=== PATIENT | male | born 1950 | race Caucasian/White ===

== ENCOUNTER 2016-09-28 12:24 | Observation (INO) | payer MEDICARE ==
[2016-09-28] MEDS ORDERED: HYDROmorphone INJ* 1 MG/ML CARPUJECT SYRINGE IV ONE ×2 (13:44→17:55)
[2016-09-28] MEDS ORDERED: LORazepam INJ* 2 MG/ML 1 ML VIAL IV ONE (13:44)
[2016-09-28 13:54] LABS: Hematocrit 49 % (42-52); Hemoglobin 16.3 g/dl (14.0-18.0); Mean Corpuscular HGB Conc 34 g/dl (31-36); Mean Corpuscular Hemoglobin 32 pg (27-31); Mean Corpuscular Volume 96 fL (80-94); Mean Platelet Volume 9 um3 (7.4-10.4); Red Blood Count 5.08 10^6/ul (4.0-5.4); Red Cell Distribution Width 15 % (10.5-15); White Blood Count 11.9 10^3/ul (3.5-10.8)
[2016-09-28] MEDS: Ondansetron INJ* 2 MG/ML VIAL IV ONE ×2 (13:56→13:57)
[2016-09-28 14:06] LABS: Albumin 4.2 g/dL (3.2-5.2); C Reactive Protein 7.15 mg/L (< 5.00); Calcium 9.8 mg/dL (8.6-10.3); EGFR African American 131.2 (>60); Globulin 3.1 g/dL (2-4); Total Bilirubin 0.8 mg/dL (0.2-1.0); Total Protein 7.3 g/dL (6.4-8.9)
--- NOTE | 2016-09-28 15:42 | RAD ---
INDICATION: Hernia COMPARISON: CT urogram September 27, 2013 TECHNIQUE: Noncontrast axial source images were obtained from the iliac crests through the symphysis pubis. FINDINGS: There are no CT abnormalities of the bony pelvis. There is bilateral hip arthroplasty The prostate is normal in size. Evaluation is limited due to beam hardening artifact from bilateral hip breath plasty. The bladder is not well evaluated due to beam hardening artifact from bilateral hip breath plasty No free fluid or adenopathy is seen. The noncontrast CT appearance of the bowel is remarkable for moderate diverticula.. Evaluation of the rectosigmoid colon is very limited again related to artifact and lack of contrast The superficial soft tissues appear normal. IMPRESSION: NONCONTRAST IMAGING DEMONSTRATES NO ACUTE DIAGNOSTIC FINDINGS
[2016-09-28 18:04] LABS: Urine Bacteria Absent (Absent); Urine Bilirubin Negative (Negative); Urine Glucose Negative (Negative); Urine Nitrite Negative (Negative)
[2016-09-28] MEDS ORDERED: fentaNYL* 50 MCG/ML 2 ML VIAL (100 MCG VIAL) ONE ×2 (18:56→20:16)
[2016-09-28] MEDS ORDERED: KETAMINE HCL* 50 MG/ML 10 ML VIAL ONE (18:56)
[2016-09-28] MEDS ORDERED: Midazolam* 1 MG/ML 5 ML VIAL (5 MG) ONE (18:56)
[2016-09-28] MEDS ORDERED: ceFAZolin 2 GM PREMIX (*) 2 GM/50 ML BAG IVPB ONE (19:09)
[2016-09-28] MEDS ORDERED: Bupivacaine 0.5% W/EPI SDV* 30 ML VIAL ONE (19:13)
[2016-09-28] MEDS ORDERED: Lidocaine 1% INJ* 10 MG/ML 30 ML SDV ONE (19:13)
[2016-09-28] MEDS ORDERED: Propofol* 10 MG/ML 20 ML BTL IV PUSH ONE (20:33)
[2016-09-28] MEDS ORDERED: Lidocaine 2% PF* 10 ML AMP ONE (20:33)
--- NOTE | 2016-09-28 20:48 | SURGPN ---
Brief Operative Note - Surgery Procedures: Procedures OPERATIVE REPORT PRE-OP: Incarcerated right inguinal hernia POST-OP: Incarcerated right femoral hernia PROCEDURE: Open repair with mesh of incarcerated right femoral hernia SURGEON: MD Sabrina ANESTHESIA:Local with MAC with [place] ASST: none IVF: min EBL:min SPECIMEN:none DRAIN: none WOUND CLASS: One COMPLICATIONS: none TO PACU
--- NOTE | 2016-09-28 20:48 | ED ---
Farideh Lou Anna, scribed for Kane Ott MD on 09/28/16 at 1611 . Progress - Progress Note Progress Note: DX RT INGINAL HERNIA. ADMIT SURGERY, TOÑA ROLLINS. - EKG/XRAY/CT CT: PELVIS CT - IMPRESSION: NO ACUTE FINDINGS - INTERP BY RADIOLOGIST Re-Evaluation - Re-Evaluation First Eval Re-Evaluation Time: 17:52 Change: Improved Comment: Patient reports pain has been somewhat alleviated. He no longer feels the hernia. He is looking forward to seeing the surgeon and requests the same pain medication he had earlier. Course/Dx - Diagnoses Provider Diagnoses: Inguinal hernia - Provider Notifications Discussed Care Of Patient With: Dr. Bennett (surgeon) at 17:48. Agrees to see patient. The documentation as recorded by the Farideh fortune Anna accurately reflects the service I personally performed and the decisions made by me, Kane Ott MD.
[2016-09-28] MEDS ORDERED: Labetalol IV* 5 MG/ML 20 ML VIAL IV PUSH ONE (20:50)
[2016-09-28] MEDS ORDERED: Labetalol IV* 5 MG/ML 20 ML VIAL ONE (20:50)
[2016-09-28] MEDS ORDERED: Morphine INJ* 2 MG/ML 1 ML CARPUJECT IV PRN (20:53)
[2016-09-28] MEDS ORDERED: oxyCODONE/Acetamin 5/325 MG* TAB PO PRN (20:53)
[2016-09-28] MEDS ORDERED: Ondansetron INJ* 2 MG/ML VIAL IV PRN ×2 (20:53→21:00)
[2016-09-28] MEDS ORDERED: fentaNYL* 50 MCG/ML 2 ML VIAL (100 MCG VIAL) IV PRN (20:53)
[2016-09-28] MEDS ORDERED: NS 0.9% 1000 ML* 1,000 ML IV SCH (21:00)
[2016-09-28] MEDS ORDERED: Ketorolac INJ* 15 MG/ML 1 ML VIAL IV PUSH PRN (21:00)
[2016-09-28] MEDS ORDERED: Acetaminophen TAB* 325 MG PO PRN (21:00)
[2016-09-28] MEDS ORDERED: Ketorolac INJ* 30 MG/ML 1 ML VIAL ONE (21:16)
--- NOTE | 2016-09-28 21:41 | HP ---
HISTORY AND PHYSICAL: DATE OF ADMISSION: 09/28/16 CHIEF COMPLAINT: Mass in right groin associated with discomfort. HISTORY OF PRESENT ILLNESS: Mr. Walker Anguiano is a 66-year-old gentleman who was told he had a right inguinal hernia in the past, but never had symptoms or noticed a lump or bulge, who woke up this morning, got out of bed, and developed a sudden and severe onset of right groin discomfort with a mass. He felt that the right testicle was somewhat retracted up. He was able to reduce this down, pain persisted. He had some nausea without vomiting. He did not note any generalized abdominal pain nor did he have distention. He has been urinating without difficulty. The pain persisted. He presented to the emergency room after calling an ambulance. He lives alone in [place]. Over the course of the day, he was seen by the emergency room physician and it was felt that there was an incarcerated right inguinal hernia and some of this was partially reduced. He still is having persistent discomfort and a bulge. He underwent a CT scan without contrast, which was read as normal; however, there is a significant amount of artefact from a right hip prosthesis, but there is no evidence of bowel involvement or bowel distention to my review of the images. He had persistent discomfort despite narcotic analgesic here in the emergency room. Surgical consultation was obtained for what appears to be an incompletely reduced right inguinal hernia, possible right femoral hernia. PAST MEDICAL HISTORY: 1. Rheumatoid arthritis. 2. Gastroesophageal reflux disease. 3. Hypercholesterolemia. PAST SURGICAL HISTORY: 1. Bilateral hip replacements. 2. Bilateral lower extremity ankle surgery for rheumatoid arthritis. 3. Dupuytren's contracture repair on the left hand. MEDICATIONS: Include: 1. Ranitidine 150 mg b.i.d. 2. Baby aspirin 81 mg daily. 3. Lipitor 20 mg q.p.m. 4. Methotrexate 7.5 mg weekly, he just recently took this on Monday. 5. Nexium 40 mg daily. 6. Hydrocodone. 7. Tylenol 1 tablet p.o. b.i.d. p.r.n. 8. Folic acid 1 mg daily. 9. Calcium carbonate 1 mg p.o. b.i.d. ALLERGIES: He is allergic to NICODERM patch from the skin dermal aspect. SOCIAL HISTORY: He lives alone. He drinks alcohol on a very rare social basis. He is a smoker and smokes cigarettes daily. He is trying to quit. REVIEW OF SYSTEMS: Cerebrovascular: He has got no dizziness or visual disturbances. Cardiovascular: No chest pain or shortness of breath. Pulmonary : No wheezing or hemoptysis. GI: As per above. He does have a history of reflux disease. : No urgency or hematuria. Psychiatric: Unremarkable. PHYSICAL EXAMINATION VITAL SIGNS: He is afebrile, temperature 99.1, pulse 85, blood pressure 141/95. HEENT: Sclerae anicteric. Trachea was midline. Oral mucosa is moist. LUNGS: Clear to auscultation with normal respiratory effort. HEART: Regular rate and rhythm without murmurs, rubs, or gallops. ABDOMEN: Soft, nondistended. He has a small reducible mildly tender umbilical hernia. There is no prior surgical incision in the right groin. He has an obvious bulge and a nonreducible right inguinal hernia, which is uncomfortable. He has anterior lateral vertical incision from his previous hip replacement with some deformity and a widened scar and the pelvis is somewhat rotated anteriorly. I appreciate no left inguinal hernia. There is no testicular masses or scrotal swelling. There is no overlying skin changes. PSYCHIATRIC: He is awake, alert, and oriented x3. He has normal judgment and insight. IMPRESSION: 1. Incarcerated right inguinal hernia. This appears to involve only a hernia sac, which is exquisitely tender, not responding to narcotic analgesia and despite multiple attempts here in the Trendelenburg's position and receiving some narcotic analgesia, I am unable to reduce the hernia manually and I recommend that we thus proceed with a surgical urgent repair. 2. Rheumatoid arthritis. 3. Hypercholesterolemia. 4. Gastroesophageal reflux disease. 5. Tobacco abuse. PLAN: Open repair with mesh of a right inguinal hernia. After reviewing the procedure and the findings on physical exam and the fact that this will persist , I feel that we should proceed with surgery this evening. I do not believe that there is bowel involved; however, he is having significant discomfort and this certainly may be a finding despite the CAT scan results. I also explained to him that this may be a femoral hernia but the management at this point is identical. I have discussed the procedure and the risks including, but not limited to, bleeding, infection, intraabdominal abscess formation, injury to peritoneal and retroperitoneal structures, recurrence, the use of mesh, testicular atrophy due to spermatic cord injury, recovery time, hospital stay, and activity restrictions, as well as anesthesia risks were all explained. I also impressed upon him that he is somewhat immunosuppressed due to his methotrexate. He is at increased risk for infection and poor wound healing, and he accepts these risks. CC: [facility]; Dr. Shah; Dr. Hsu, Rheumatology * [id number]/[facility] #: [id number] [facility]
[2016-09-28] MEDS ORDERED: oxyCODONE/Acetamin 5/325 MG* TAB ONE (22:24)
[2016-09-28] MEDS: oxyCODONE/Acetamin 5/325 MG* TAB PO PRN (22:27)
--- NOTE | 2016-09-29 07:22 | PN ---
Progress Note - Progress Note SOAP: Subjective: Did well overnight-pain controlled with percocet Tolerating liquids and urinating well Objective: Temp Pulse Resp BP Pulse Ox 97.8 F 86 16 126/75 97 09/29/16 03:50 09/29/16 03:50 09/29/16 03:50 09/29/16 03:50 09/29/16 03:50 Intake & Output 09/27/16 09/28/16 09/29/16 09/30/16 06:59 06:59 06:59 06:59 Intake Total 850 Output Total 200 Balance 650 Weight 128 lb Intake: IV Fluids 750 NS 50ML, Cefazolin 2G 50 lr 700 Oral 100 Output: Urine 200 PEX: Comfortable Lungs are CTA Abd is soft and non-distended. Bowel sounds are present Dressing intact right groin--mild swelling, no ecchymosis Scrotum without edema Assessment: POD#1 s/p urgent repair of incarcerated right femoral hernia with mesh RH arthritis GERD Plan: Advance diet and activity Analgesia Plan d/c later today--patient lives alone and is working to arrange transport home RX sent to [facility] on [facility]-stop checked Outpatient follow up
[2016-09-29] MEDS ORDERED: Omeprazole CAP* 20 MG PO SCH (07:30)
[2016-09-29 07:52] VITALS: BP 136/82
--- NOTE | 2016-09-29 08:09 | OP ---
DATE OF OPERATION: 09/28/16 - ROOM #343 DATE OF : 46 SURGEON: Steven Bennett M.D. FORMS DESIGNER: None. ANESTHESIOLOGIST: Dr. Livingston. ANESTHESIA: Local with monitored anesthesia care. PRE-OP DIAGNOSIS: Incarcerated right inguinal hernia. POST-OP DIAGNOSIS: Incarcerated right femoral hernia. OPERATIVE PROCEDURE: Open repair with mesh of incarcerated right femoral hernia. ESTIMATED BLOOD LOSS: Minimal. SPECIMENS: None. WOUND CLASSIFICATION: 1. IV FLUIDS: Minimal. COMPLICATIONS: None. DRAINS: None. FINDINGS: The patient had an incarcerated right femoral hernia. This did not appear to contain bowel, but appeared more than likely fat and was reduced without difficulty. DESCRIPTION OF PROCEDURE: Written informed consent was obtained, the right groin was marked with indelible ink, and preoperative antibiotics were administered. The patient was taken to the operating room, placed in the supine position. Sequential compression devices and a warming blanket were applied. The right groin and lower abdomen were prepped and draped in the usual sterile fashion. Time-out verification was completed. Initially, 0.25% Marcaine mixed with 1% lidocaine was infiltrated extensively just above the right groin crease in the right lower abdomen. An oblique incision was made and carried down through the Kervin's fascia to the external oblique aponeurosis was identified. At this point, it appeared that the palpable mass with somewhat inferior to the area of the inguinal ligament, more consistent with a femoral hernia, and I was able to dissect out a fatty-filled mass just below the abdominal wall and the anterior thigh medial, which is several centimeters in diameter, and dissected down to its neck, which is about 1 cm in diameter. This appeared to be a hernia sac with fat containing, without evidence of obvious bowel. I was able, with careful consistent gentle pressure and a little manipulation, I was able to reduce this without difficulty. The femoral fascial defect was approximately 8 to 9 mm, and I could easily pass the blunt end of a pickups in the angle into the femoral canal as to be expected. The external ring that I could identify through this rather limited dissection showed no evidence of obvious inguinal hernia. Next, a rectangular piece of polypropylene mesh was rolled up into a cigarette- type of mesh plug, approximately a 4- to 4.5-cm in length, and sutured on either side to hold it in position with an 0 Polysorb suture. I was then able to place this up into the femoral canal without difficulty a good 3 to 4 cm, right until it was flush with the external oblique aponeurosis at its reflection where it essentially became the inguinal ligament. I sutured this in several positions with interrupted 0 Polysorb suture to the inguinal ligaments superiorly and the some of the fascia medially and it sat nicely and seemed to cover the defect well. Additional Marcaine and lidocaine were infiltrated in the deeper and superficial layers. Hemostasis was assured. The wound was closed in layers of 3-0 and 4-0 Polysorb suture. Steri-Strips and sterile dressings were applied. The patient tolerated the procedure well, was taken to the recovery room in stable condition. CC: [facility]; [facility]; [facility]; Dr. Shah's Office * [id number]/[facility] #: [id number] [facility]
[2016-09-29] MEDS ORDERED: Aspirin Low Dose CHEW TAB* 81 MG PO SCH (09:00)
[2016-09-29] MEDS: oxyCODONE/Acetamin 5/325 MG* TAB PO PRN (09:13)
[2016-09-29] MEDS ORDERED: Atorvastatin* 20 MG TAB PO SCH (18:00)
--- NOTE | 2016-09-30 11:00 | ED ---
Darrin Lou Benjamin, scribed for Jeremie Carlos MD on 09/28/16 at 1346 . Abdominal Pain/Male - HPI Summary HPI Summary: 66yo male with existing inguinal hernia came to ED today c/o severe groin pain. Pt can usually push back his hernie when it protrudes, but this morning pt had severe groin pain that radiates down to his penis shortly after having a BM. Pt tried pushing it back on his own many times, but couldnt reduce it. Pt has hx of hip replacement and denies any CAD, DM, or any other medical problems. Daily smoker. - History of Current Complaint Chief Complaint: EDAbdPain Stated Complaint: LOWER RT ABD PAIN Time Seen by Provider: 09/28/16 13:17 Hx Obtained From: Patient Onset/Duration: Sudden Onset, Lasting Hours, Still Present Timing: Constant Severity Initially: Severe Severity Currently: Severe Pain Intensity: 9 Pain Scale Used: 0-10 Numeric Location: Groin - right groin Radiates: Yes Radiates to: Other - penis Aggravating Factor(s): Nothing Alleviating Factor(s): Nothing Associated Signs And Symptoms: Positive: Negative - Allergies/Home Medications Allergies/Adverse Reactions: Allergies Allergy/AdvReac Type Severity Reaction Status Date / Time Nicotine [From Nicoderm] Allergy Rash Verified 07/23/15 11:44 PMH/Surg Hx/FS Hx/Imm Hx Endocrine/Hematology History: Denies: Hx Diabetes Cardiovascular History: Denies: Hx Angina, Hx Coronary Artery Disease, Hx Hypercholesterolemia, Hx Hypertension, Hx Myocardial Infarction, Hx Pacemaker/ICD, Hx Valvular Heart Disease Respiratory History: Reports: Other Respiratory Problems/Disorders - SMOKER FOR 52 YEARS Denies: Hx Asthma, Hx Chronic Obstructive Pulmonary Disease (COPD) GI History: Reports: Hx Gastroesophageal Reflux Disease - ON MEDICATION FOR, Other GI Disorders - reflux Denies: Hx Cirrhosis History: Reports: Other Problems/Disorders - Inguinal Hernia Denies: Hx Renal Disease Musculoskeletal History: Reports: Hx Arthritis - RHEUMATOID ARTHRITIS, Hx Rheumatoid Arthritis, Hx Osteoporosis, Other Musculoskeletal History - brace L leg do to freq knee dislocation Sensory History: Reports: Hx Contacts or Glasses - GLASSES Denies: Hx Hearing Aid Opthamlomology History: Reports: Hx Contacts or Glasses - GLASSES Psychiatric History: Denies: Hx Panic Disorder - Cancer History Cancer Type, Location and Year: PROSTATE - Surgical History Surgery Procedure, Year, and Place: 1994 LEFT HIP REPLACEMENT, [place] Hx Anesthesia Reactions: No Infectious Disease History: No Infectious Disease History: Denies: Traveled Outside the [place] in Last 30 Days - Family History Known Family History: Negative: Cardiac Disease, Hypertension, Diabetes - Social History Alcohol Use: Weekly Substance Use Type: Reports: None Substance Use Comment - Amount & Last Used: MARIJUANA ONCE A WHILE Smoking Status (MU): Current Every Day Smoker Type: Cigarettes Amount Used/How Often: 1/2 PPD X 52 YEARS Have You Smoked in the Last Year: Yes Review of Systems Constitutional: Negative Eyes: Negative ENT: Negative Cardiovascular: Negative Respiratory: Negative Gastrointestinal: Negative Positive: pain - right groin pain Musculoskeletal: Negative Skin: Negative Neurological: Negative Psychological: Normal All Other Systems Reviewed And Are Negative: Yes Physical Exam Triage Information Reviewed: Yes Vital Signs On Initial Exam: Initial Vitals Temp Pulse Resp BP Pulse Ox 99.1 F 79 16 160/99 100 09/28/16 12:42 09/28/16 12:42 09/28/16 12:42 09/28/16 12:42 09/28/16 12:42 Vital Signs Reviewed: Yes Appearance: Positive: Well-Appearing, No Pain Distress, Well-Nourished Skin: Positive: Warm, Skin Color Reflects Adequate Perfusion, Dry Head/Face: Positive: Normal Head/Face Inspection Eyes: Positive: Normal ENT: Positive: Normal ENT inspection Neck: Positive: Supple, Nontender Respiratory/Lung Sounds: Positive: Clear to Auscultation, Breath Sounds Present Cardiovascular: Positive: RRR Abdomen Description: Positive: Nontender, Soft, Other: - right inguinal hernia. firm. tender to palpation. 150cc of urine in his bladder when scanned by bladderscan. Bowel Sounds: Positive: Present Musculoskeletal: Positive: Normal, Strength/ROM Intact Neurological: Positive: Normal, Sensory/Motor Intact, Alert, Oriented to Person Place, Time, CN Intact II-III, Reflexes Intact Psychiatric: Positive: Affect/Mood Appropriate - Candy Coma Scale Coma Scale Total: 15 Diagnostics - Vital Signs Vital Signs Temp Pulse Resp BP Pulse Ox 09/28/16 12:44 75 12 97 09/28/16 12:43 160/99 09/28/16 12:42 99.1 F 79 16 160/99 100 - Laboratory Lab Results: Lab Results 09/28/16 09/28/16 09/28/16 Range/Units 13:20 13:20 13:20 WBC 11.9 H (3.5-10.8) 10^3/ul RBC 5.08 (4.0-5.4) 10^6/ul Hgb 16.3 (14.0-18.0) g/dl Hct 49 (42-52) % MCV 96 H (80-94) fL MCH 32 H (27-31) pg MCHC 34 (31-36) g/dl RDW 15 (10.5-15) % Plt Count 374 (150-450) 10^3/ul MPV 9 (7.4-10.4) um3 Neut % (Auto) 87.0 H (38-83) % Lymph % (Auto) 7.8 L (25-47) % Hudspeth % (Auto) 3.3 (1-9) % Eos % (Auto) 1.1 (0-6) % Baso % (Auto) 0.8 (0-2) % Absolute Neuts (auto) 10.4 H (1.5-7.7) 10^3/ul Absolute Lymphs (auto) 0.9 L (1.0-4.8) 10^3/ul Absolute Monos (auto) 0.4 (0-0.8) 10^3/ul Absolute Eos (auto) 0.1 (0-0.6) 10^3/ul Absolute Basos (auto) 0.1 (0-0.2) 10^3/ul Absolute Nucleated RBC 0.01 10^3/ul Nucleated RBC % 0.1 Sodium 141 (133-145) mmol/L Potassium 4.0 (3.5-5.0) mmol/L Chloride 106 (101-111) mmol/L Carbon Dioxide 28 (22-32) mmol/L Anion Gap 7 (2-11) mmol/L BUN 19 (6-24) mg/dL Creatinine 0.76 (0.67-1.17) mg/dL Est GFR ( Amer) 131.2 (>60) Est GFR (Non-Af Amer) 102.0 (>60) BUN/Creatinine Ratio 25.0 H (8-20) Glucose 103 H (70-100) mg/dL Lactic Acid 1.3 (0.5-2.0) mmol/L Calcium 9.8 (8.6-10.3) mg/dL Total Bilirubin 0.80 (0.2-1.0) mg/dL AST 11 L (13-39) U/L ALT 6 L (7-52) U/L Alkaline Phosphatase 100 (34-104) U/L C-Reactive Protein 7.15 H (< 5.00) mg/L Total Protein 7.3 (6.4-8.9) g/dL Albumin 4.2 (3.2-5.2) g/dL Globulin 3.1 (2-4) g/dL Albumin/Globulin Ratio 1.4 (1-3) Urine Color Urine Appearance Urine pH (5-9) Ur Specific Lykens (1.010-1.030) Urine Protein (Negative) Urine Ketones (Negative) Urine Blood (Negative) Urine Nitrate (Negative) Urine Bilirubin (Negative) Urine Urobilinogen (Negative) Ur Leukocyte Esterase (Negative) Urine WBC (Auto) (Absent) Urine RBC (Auto) (Absent) Urine Bacteria (Absent) Urine Glucose (Negative) 09/28/16 Range/Units 17:55 WBC (3.5-10.8) 10^3/ul RBC (4.0-5.4) 10^6/ul Hgb (14.0-18.0) g/dl Hct (42-52) % MCV (80-94) fL MCH (27-31) pg MCHC (31-36) g/dl RDW (10.5-15) % Plt Count (150-450) 10^3/ul MPV (7.4-10.4) um3 Neut % (Auto) (38-83) % Lymph % (Auto) (25-47) % Hudspeth % (Auto) (1-9) % Eos % (Auto) (0-6) % Baso % (Auto) (0-2) % Absolute Neuts (auto) (1.5-7.7) 10^3/ul Absolute Lymphs (auto) (1.0-4.8) 10^3/ul Absolute Monos (auto) (0-0.8) 10^3/ul Absolute Eos (auto) (0-0.6) 10^3/ul Absolute Basos (auto) (0-0.2) 10^3/ul Absolute Nucleated RBC 10^3/ul Nucleated RBC % Sodium (133-145) mmol/L Potassium (3.5-5.0) mmol/L Chloride (101-111) mmol/L Carbon Dioxide (22-32) mmol/L Anion Gap (2-11) mmol/L BUN (6-24) mg/dL Creatinine (0.67-1.17) mg/dL Est GFR ( Amer) (>60) Est GFR (Non-Af Amer) (>60) BUN/Creatinine Ratio (8-20) Glucose (70-100) mg/dL Lactic Acid (0.5-2.0) mmol/L Calcium (8.6-10.3) mg/dL Total Bilirubin (0.2-1.0) mg/dL AST (13-39) U/L ALT (7-52) U/L Alkaline Phosphatase (34-104) U/L C-Reactive Protein (< 5.00) mg/L Total Protein (6.4-8.9) g/dL Albumin (3.2-5.2) g/dL Globulin (2-4) g/dL Albumin/Globulin Ratio (1-3) Urine Color Yellow Urine Appearance Clear Urine pH 7.0 (5-9) Ur Specific Lykens 1.016 (1.010-1.030) Urine Protein Negative (Negative) Urine Ketones 1+ H (Negative) Urine Blood 2+ H (Negative) Urine Nitrate Negative (Negative) Urine Bilirubin Negative (Negative) Urine Urobilinogen Negative (Negative) Ur Leukocyte Esterase Negative (Negative) Urine WBC (Auto) Trace(0-5/hpf) (Absent) Urine RBC (Auto) 3+(>10/hpf) H (Absent) Urine Bacteria Absent (Absent) Urine Glucose Negative (Negative) Result Diagrams: 09/28/16 13:20 09/28/16 13:20 Lab Statement: Any lab studies that have been ordered have been reviewed, and results considered in the medical decision making process. Abdominal Pain Fem Course/Dx - Course Course Of Treatment: Mr. Anguiano presented with a bulging firm right inguinal hernia. After analgesia I was able to reduce most of it but I don't think I got it all back in. A CT has been ordered and I have spoken with Dr. Bennett. I don't think he is in danger of strangulation now. - Diagnoses Provider Diagnoses: Inguinal hernia - Provider Notifications Discussed Care Of Patient With: Dr. Bennett, Dr. Ott at change of shift. Discharge - Discharge Plan Condition: Good Disposition: ADMITTED TO [facility] documentation as recorded by the Darrin fortune Benjamin accurately reflects the service I personally performed and the decisions made by me, Jeremie Carlos MD.
--- NOTE | 2017-02-14 09:59 | DS ---
CC: [facility]; Dr. Shah DISCHARGE SUMMARY: DATE OF DICTATION: 02/10/2017. DATE OF ADMISSION: 09/28/16 DATE OF DISCHARGE: 09/29/16 PRINCIPAL DIAGNOSIS: Incarcerated right femoral hernia. PROCEDURE PERFORMED: Open repair with mesh of incarcerated right femoral hernia. SECONDARY DIAGNOSES: Include: 1. Rheumatoid arthritis. 2. Gastroesophageal reflux disease. 3. Hypercholesterolemia. CONDITION ON DISCHARGE: Good. DISPOSITION: To home. DISCHARGE INSTRUCTIONS: The patient was discharged to home with wound care instructions. He will continue his preadmission medications, which include: 1. Folic acid. 2. Atorvastatin 20 mg daily. 3. Methotrexate 7.5 mg every Monday. 4. Ranitidine 150 mg b.i.d. 5. Aspirin 81 mg daily. 6. Nexium 40 mg every day. 7. Multivitamins. He was also given a prescription for Lorcet Plus 7.5/325 without refill for postoperative pain. Instructions and arrangements were made for followup in the office as well. HISTORY OF PRESENT ILLNESS: Mr. Walker Anguiano is a 66-year-old gentleman presented to the emergency room with sudden onset of right groin discomfort with pain down into the right testicle and retraction. He was told he has an inguinal hernia in the past. He has never had this formally evaluated. He was seen in the emergency room, noted a bulge in the right groin. A CT scan of the pelvis was relatively unremarkable although he had a previous right hip prosthesis causing a significant amount of artifact. Due to his increased discomfort, a surgical consultation was obtained. It was felt that he had incarcerated femoral or inguinal hernia and this was not reducible and plans were made for operative repair. HOSPITAL COURSE: The patient was taken to operative room on the evening of presentation where he underwent a repair of incarcerated right femoral hernia repair. There is no evidence of bowel involvement. Postoperatively, he did well and his diet was advanced as tolerated. On discharge, he was tolerating a regular diet. His pain was adequately controlled with oral analgesia. He was afebrile. [id number]/[facility] #: [id number] [facility]
== END 2016-09-29 12:10 | disposition home or self-care (01) ==
LOC: ED 12:24 → SSU 20:14 → OR 20:14 → SSU 20:57 → UNDOADMOB 22:20 → UNDODISOB 09-29 12:10
PROVIDERS: ADMIT Surgery; ATTEND Surgery
PROC: 0YU50JZ Supplement Right Inguinal Region with Synthetic Substitute, Open Approach (ICD-10-PCS; principal; 2016-09-28 20:00)
DX: K40.30 Unilateral inguinal hernia, with obstruction, without gangrene, not specified as recurrent (principal); M06.9 Rheumatoid arthritis, unspecified; E78.00 Pure hypercholesterolemia, unspecified; K21.9 Gastro-esophageal reflux disease without esophagitis; F17.210 Nicotine dependence, cigarettes, uncomplicated; Z79.899 Other long term (current) drug therapy
CPT/HCPCS: 36415; 72192; 80053; 81003; 81015; 83605; 85025; 86140; 96374; 96375; 96376; 99284; A9270-GY; C1781; G0378; J0690; J1170; J1885; J2001; J2060; J2250; J2405; J2704; J3010

== ENCOUNTER 2019-01-09 10:16 | Emergency (ER) | payer MEDICARE ==
[2019-01-09] MEDS ORDERED: Morphine 4 MG/ML VIAL (1 ml) 4 MG/ML VIAL IV ONE (10:24)
[2019-01-09] MEDS ORDERED: Ondansetron INJ* 2 MG/ML VIAL IV ONE (10:25)
[2019-01-09 11:03] VITALS: BP 142/98
--- NOTE | 2019-01-09 14:01 | ED ---
Upper Extremity Pain - HPI Summary HPI Summary: Patient is a 68-year-old male who presents emergency department for right shoulder dislocation. Patient states his shoulders have dislocated in the past but not recently. Patient states he was taking off a shirt today over his head and when he threw the shoulder into the hamper his right shoulder dislocated. Symptoms are mild in severity. Touching affected area makes symptoms worse. Nothing makes symptoms better. Denies associated symptoms of numbness, tingling or weakness and right arm. - History of Current Complaint Chief Complaint: EDExtremityUpper Stated Complaint: DISLOCATED RT SHOULDER PER EMS Time Seen by Provider: 01/09/19 10:20 Hx Obtained From: Patient - Allergies/Home Medications Allergies/Adverse Reactions: Allergies Allergy/AdvReac Type Severity Reaction Status Date / Time Nicotine [From Nicoderm] Allergy Rash Verified 07/23/15 11:44 PMH/Surg Hx/FS Hx/Imm Hx Previously Healthy: Yes Endocrine/Hematology History: Denies: Hx Diabetes Cardiovascular History: Denies: Hx Angina, Hx Coronary Artery Disease, Hx Hypercholesterolemia, Hx Hypertension, Hx Myocardial Infarction, Hx Pacemaker/ICD, Hx Valvular Heart Disease Respiratory History: Reports: Other Respiratory Problems/Disorders - SMOKER FOR 52 YEARS Denies: Hx Asthma, Hx Chronic Obstructive Pulmonary Disease (COPD) GI History: Reports: Hx Gastroesophageal Reflux Disease - ON MEDICATION FOR, Other GI Disorders - reflux Denies: Hx Cirrhosis History: Denies: Hx Renal Disease Musculoskeletal History: Reports: Hx Arthritis - RHEUMATOID ARTHRITIS, Hx Rheumatoid Arthritis, Hx Osteoporosis, Other Musculoskeletal History - brace L leg do to freq knee dislocation Sensory History: Reports: Hx Contacts or Glasses - GLASSES Denies: Hx Hearing Aid Opthamlomology History: Reports: Hx Contacts or Glasses - GLASSES Psychiatric History: Denies: Hx Panic Disorder - Cancer History Cancer Type, Location and Year: PROSTATE - Surgical History Surgery Procedure, Year, and Place: 1994 LEFT HIP REPLACEMENT, [place] Hx Anesthesia Reactions: No - Immunization History Date of Influenza Vaccine: 06/2019 Immunizations Up to Date: Yes Infectious Disease History: No Infectious Disease History: Denies: Traveled Outside the US in Last 30 Days - Family History Known Family History: Positive: Non-Contributory - Social History Occupation: Disabled Lives: Alone Alcohol Use: None Substance Use Type: Reports: None Substance Use Comment - Amount & Last Used: MARIJUANA ONCE A WHILE Smoking Status (MU): Current Every Day Smoker Type: Cigarettes Amount Used/How Often: 1/2 PPD X 52 YEARS Have You Smoked in the Last Year: Yes Review of Systems Positive: Other - Right shoulder injury Skin: Negative Negative: Weakness, Paresthesia, Numbness All Other Systems Reviewed And Are Negative: Yes Physical Exam Triage Information Reviewed: Yes Vital Signs On Initial Exam: Initial Vitals Temp Pulse Resp BP Pulse Ox 97.9 F 77 18 143/87 99 01/09/19 10:17 01/09/19 10:17 01/09/19 10:17 01/09/19 10:17 01/09/19 10:17 Vital Signs Reviewed: Yes Appearance: Positive: Well-Appearing - Pt. sitting up in bed in NAD. Skin: Positive: Warm, Dry Head/Face: Positive: Normal Head/Face Inspection Eyes: Positive: Normal, EOMI Neck: Positive: Supple Musculoskeletal: Positive: Other - Obvious deformity to right shoulder. Good radial pulse. NO breaks in the skin. No sensory deficits. Neurological: Positive: Normal, CN Intact II-III Psychiatric: Positive: Affect/Mood Appropriate Procedures - Joint Reduction Right Joint Reduction Site: shoulder (R) Conscious Sedation: No Reduction Attempts: 1 Pre-Procedure NV Exam: Yes Post Joint Reduction Film: Shoulder reduced with external rotation. Shoulder immobilizer placed Diagnostics - Vital Signs Vital Signs Temp Pulse Resp BP Pulse Ox 01/09/19 11:28 97.9 F 85 17 142/98 99 01/09/19 11:02 97.8 F 75 17 142/98 95 01/09/19 10:41 17 01/09/19 10:17 97.9 F 77 18 143/87 99 - Laboratory Lab Statement: Any lab studies that have been ordered have been reviewed, and results considered in the medical decision making process. Course/Dx - Course Course Of Treatment: X-ray shows a right anterior shoulder dislocation. Patient was given IV pain medication and shoulder was reduced easily with external rotation. Good post reduction radial pulse. Postreduction film shows reduction of shoulder. Patient discharged home in shoulder immobilizer to follow up with orthopedics. Ice intermittently. Tylenol or Motrin for pain as directed. Patient understands and agrees with plan. - Diagnoses Differential Diagnosis/HQI/PQRI: Positive: Fracture (Closed), Strain, Sprain Provider Diagnoses: Shoulder dislocation Discharge - Sign-Out/Discharge Documenting (check all that apply): Patient Departure Patient Received Moderate/Deep Sedation with Procedure: No - Discharge Plan Condition: Improved Disposition: HOME Patient Education Materials: Shoulder Dislocation (ED) Referrals: Derrek Le MD [Medical Doctor] - David Shah MD [Primary Care Provider] - Additional Instructions: Schedule a follow up appointment with orthopedics Wear splint x 1-2 weeks Ice shoulder intermittently Can continue home pain medication as directed Return to ER if symptoms change or worsen - Billing Disposition and Condition Condition: IMPROVED Disposition: Home
== END 2019-01-09 11:28 | disposition home or self-care (01) ==
LOC: ED 10:16
DX: S43.004A Unspecified dislocation of right shoulder joint, initial encounter (principal); X58.XXXA Exposure to other specified factors, initial encounter; I10 Essential (primary) hypertension; I25.10 Atherosclerotic heart disease of native coronary artery without angina pectoris; I25.2 Old myocardial infarction; E78.00 Pure hypercholesterolemia, unspecified; J44.9 Chronic obstructive pulmonary disease, unspecified; M06.9 Rheumatoid arthritis, unspecified; F17.210 Nicotine dependence, cigarettes, uncomplicated; Z95.0 Presence of cardiac pacemaker
CPT/HCPCS: 23650; 96374; 96375; 99282; J2270; J2405

== ENCOUNTER 2019-09-20 06:02 | Emergency (ER) | payer MEDICARE ==
[2019-09-20] MEDS ORDERED: Albuterol/Ipratropium NEB.SOL* Albuterol 2.5 MG/Ipratropium 0.5 MG 3 ML INH ONE (06:06)
--- NOTE | 2019-09-20 06:15 | ED ---
Shortness of Breath - HPI Summary HPI Summary: 69-year-old male with a significant past medical history of rheumatoid arthritis , hypercholesterolemia, diabetes, coronary artery disease, pacemaker placement, COPD presents to emergency department today complaining of shortness of breath for 3 days. Patient is endorsing cough, trouble breathing but denies fever, chest pain, abdominal pain. Patient has signs of labored breathing upon arrival to the emergency department. Patient has not received any antibiotics last 30 days. Patient was given 1 DuoNeb upon arrival to the hospital for shortness of breath with relief. Patient has a 52 year smoking history. Family history and surgical history noncontributory. - History of Current Complaint Time Seen by Provider: 09/20/19 06:06 Hx Obtained From: Patient Onset/Duration: Gradual Onset Timing: Constant Current Severity: Severe Dyspnea At: Exertion Aggravating Factors: Movement Alleviating Factors: Bronchodilators, EMS Tx, Oxygen, Upright Position Associated Signs & Symptoms: Cough (Productive) - Allergy/Home Medications Allergies/Adverse Reactions: Allergies Allergy/AdvReac Type Severity Reaction Status Date / [facility] Allergy Rash Verified 09/20/19 06:17 Home Medications: Home Medications Cyanocobalamin TAB* [Vitamin B12 TAB*] 1,000 mcg PO DAILY 09/20/19 [History Confirmed 09/20/19] Fluticasone Propionate 0.005 % TOPICAL BID 09/20/19 [History Confirmed 09/20/19] Hydrocodone/Acetaminophen [[place] 7.5-325 Tablet] 1 each PO QID PRN 09/20/19 [ History Confirmed 09/20/19] PMH/Surg Hx/FS Hx/Imm Hx Endocrine/Hematology History: Denies: Hx Diabetes Cardiovascular History: Denies: Hx Angina, Hx Coronary Artery Disease, Hx Hypercholesterolemia, Hx Hypertension, Hx Myocardial Infarction, Hx Pacemaker/ICD, Hx Valvular Heart Disease Respiratory History: Reports: Other Respiratory Problems/Disorders - SMOKER FOR 52 YEARS Denies: Hx Asthma, Hx Chronic Obstructive Pulmonary Disease (COPD) GI History: Reports: Hx Gastroesophageal Reflux Disease - ON MEDICATION FOR, Other GI Disorders - reflux Denies: Hx Cirrhosis History: Denies: Hx Renal Disease Musculoskeletal History: Reports: Hx Arthritis - RHEUMATOID ARTHRITIS, Hx Rheumatoid Arthritis, Hx Osteoporosis, Other Musculoskeletal History - brace L leg do to freq knee dislocation Sensory History: Reports: Hx Contacts or Glasses - GLASSES Denies: Hx Hearing Aid Opthamlomology History: Reports: Hx Contacts or Glasses - GLASSES Psychiatric History: Denies: Hx Panic Disorder - Cancer History Cancer Type, Location and Year: PROSTATE - Surgical History Surgery Procedure, Year, and Place: 1994 LEFT HIP REPLACEMENT, [place] Hx Anesthesia Reactions: No - Immunization History Date of Influenza Vaccine: 06/2019 - Family History Known Family History: Positive: Non-Contributory - Social History Alcohol Use: None Substance Use Type: Reports: None Substance Use Comment - Amount & Last Used: MARIJUANA ONCE A WHILE Smoking Status (MU): Current Every Day Smoker Type: Cigarettes Amount Used/How Often: 1/2 PPD X 52 YEARS Have You Smoked in the Last Year: Yes Review of Systems Constitutional: Negative Eyes: Negative ENT: Negative Cardiovascular: Negative Positive: Shortness Of Breath, Cough Gastrointestinal: Negative Genitourinary: Negative Musculoskeletal: Negative Skin: Negative Neurological: Negative Psychological: Normal All Other Systems Reviewed And Are Negative: Yes Physical Exam - Summary Physical Exam Summary: Patient has signs of mild respiratory distress upon arrival to the emergency department. Patient has evidence of labored breathing with accessory muscle use. Patient speaks in 5 word sentences. No evidence of cyanosis. There is diffuse wheezing and rales appreciated throughout the precordium. Triage Information Reviewed: Yes Vital Signs Reviewed: Yes Appearance: Positive: No Pain Distress, Well-Nourished, Ill-Appearing Skin: Positive: Warm, Skin Color Reflects Adequate Perfusion Eyes: Positive: EOMI, CYRIL ENT: Positive: Hearing grossly normal Respiratory/Lung Sounds: Positive: Breath Sounds Present, Decreased Breath Sounds, Rales, Wheezes Cardiovascular: Positive: RRR, S1, S2 Abdomen Description: Positive: Nontender, Soft Bowel Sounds: Positive: Present Musculoskeletal: Positive: Strength/ROM Intact Neurological: Positive: Sensory/Motor Intact, Alert, Oriented to Person Place, Time, Normal Gait, Speech Normal Psychiatric: Positive: Normal AVPU Assessment: Alert Procedures - Sedation Patient Received Moderate/Deep Sedation with Procedure: No Diagnostics - Laboratory Result Diagrams: 09/20/19 06:30 09/20/19 06:30 Lab Statement: Any lab studies that have been ordered have been reviewed, and results considered in the medical decision making process. Course/Dx - Course Course Of Treatment: Patient was evaluated in the emergency department for shortness of breath. The patient was seen and examined his vitals are stable and he is afebrile. Patient was given 1 DuoNeb nebulizer treatment in route to the hospital via EMS and another DuoNeb upon arrival. An EKG was done promptly which showed no evidence of STEMI. Normal sinus rhythm 88 bpm. Left axis deviation. Mild T wave inversion in lead aVL. These EKG findings are unchanged when compared to prior done and 09/26/2014. Chest x-ray shows hyperinflation consistent with COPD. No active cardiopulmonary disease such as infiltrate. Lab work shows leukocytosis with white blood cell count of 11.9 with left shift. CRP 21.62 which is elevated. There are no significant electrolyte abnormalities. BNP within normal limits. Troponin 0.01 and the patient is not complaining of chest pain. Patient was given 125 mg methylprednisolone, 2 g of magnesium sulfate, 650 mg Tylenol for his respiratory distress and headache. Patient's respiratory distress decreased significantly after 2 nebulizers and medication treatment. Patient had COPD exacerbation due to viral upper respiratory infection. Patient was given albuterol inhaler to use at home and to follow-up with his PCP for further evaluation and management and possible usp COPD maintenance drugs. - Diagnoses Differential Diagnosis/HQI/PQRI: Positive: Airway Obstruction, Asthma, Bronchitis, COPD Exacerbation, Pneumonia, Pneumothorax, Pulmonary Edema Provider Diagnoses: COPD exacerbation, Viral upper respiratory infection Discharge ED - Sign-Out/Discharge Documenting (check all that apply): Patient Departure - Discharge Plan Condition: Stable Disposition: HOME Prescriptions: Albuterol HFA INHALER* [Ventolin HFA Inhaler*] 2 puff INH Q4H PRN #100 mdi PRN Reason: Shortness Of Breath Patient Education Materials: Chronic Bronchitis (ED) Referrals: David Shah MD [Primary Care Provider] - 5 Days Additional Instructions: You were seen in the emergency department today and due to a COPD exacerbation. You are currently suffering from an upper respiratory infection likely caused by a virus. Please use the prescribed inhaler as directed and be sure to take Mucinex daily for alleviation of your symptoms. Please follow-up with your primary care physician in 5 days for further evaluation and management and for possible placement on COPD maintenance drugs. Please return to the emergency department immediately if you develop any new or worsening symptoms. - Billing Disposition and Condition Condition: STABLE Disposition: Home - Attestation Statements Provider Attestation: I was available for consult. This patient was seen by the INA. The patient was not presented to, seen by, or examined by me. Edis Rodriguez MD
[2019-09-20 06:39] LABS: ABS Basophils 0.1 10^3/ul (0-0.2); ABS Lymphocytes 1.2 10^3/ul (1.0-4.8); ABS Neutrophils 9.6 10^3/ul (1.5-7.7); Eosinophil % 0.1 %; Hematocrit 43 % (42-52); Hemoglobin 14.9 g/dL (14.0-18.0); Lymphocyte % 9.7 %; Mean Corpuscular HGB Conc 34 g/dL (31-36); Mean Corpuscular Hemoglobin 33 pg (27-31); Mean Corpuscular Volume 96 fL (80-94); Platelet Count 270 10^3/uL (150-450); Red Blood Count 4.54 10^6 /uL (4.18-5.48); Red Cell Distribution Width 15 % (10-15); White Blood Count 11.9 10^3/uL (3.5-10.8)
[2019-09-20] MEDS ORDERED: Magnesium Sulfate 2 GM IV* 2 GM/50 ML BAG IVPB ONE (06:54)
[2019-09-20] MEDS ORDERED: methylPREDNISolone 125 MG* 2 ML VIAL IV ONE (06:54)
[2019-09-20 06:56] LABS: Albumin/Globulin Ratio 1.4 (1-3); BUN/Creatinine Ratio 16.5 (8-20); C Reactive Protein 21.62 mg/L (<8.01); Calcium 8.9 mg/dL (8.6-10.3); EGFR Non-African American 96.7 (>60); Globulin 2.9 g/dL (2-4); Potassium 3.8 mmol/L (3.5-5.0); Total Bilirubin 0.6 mg/dL (0.2-1.0); Total Protein 6.9 g/dL (6.4-8.9)
[2019-09-20 06:58] LABS: Troponin I 0.01 ng/mL (<0.03)
[2019-09-20] MEDS ORDERED: Acetaminophen TAB* 325 MG PO ONE (07:11)
[2019-09-20] MEDS ORDERED: guaiFENesin ER TAB 600 MG PO ONE (07:56)
[2019-09-20 09:25] VITALS: BP 101/68
== END 2019-09-20 09:31 | disposition home or self-care (01) ==
LOC: ED 06:02
DX: J44.1 Chronic obstructive pulmonary disease with (acute) exacerbation (principal); J06.9 Acute upper respiratory infection, unspecified; E78.00 Pure hypercholesterolemia, unspecified; E11.9 Type 2 diabetes mellitus without complications; I25.10 Atherosclerotic heart disease of native coronary artery without angina pectoris; Z95.0 Presence of cardiac pacemaker; J44.9 Chronic obstructive pulmonary disease, unspecified; R06.02 Shortness of breath; Z79.899 Other long term (current) drug therapy; K21.9 Gastro-esophageal reflux disease without esophagitis; F17.210 Nicotine dependence, cigarettes, uncomplicated; M06.9 Rheumatoid arthritis, unspecified
CPT/HCPCS: 36415; 71046; 80053; 82803; 83605; 83880; 84484; 85025; 86140; 93005; 96374; 96375; 99284; A9270-GY; J2930; J3475

== ENCOUNTER 2019-09-20 09:45 | Observation (INO) | payer MEDICARE ==
[2019-09-20] MEDS ORDERED: Albuterol/Ipratropium NEB.SOL* Albuterol 2.5 MG/Ipratropium 0.5 MG 3 ML INH ONE (09:58)
--- NOTE | 2019-09-20 10:05 | ED ---
Shortness of Breath - HPI Summary HPI Summary: 69-year-old male recently discharged from this emergency department approximately 10 mins ago presents to the emergency department today after attempting to get on a bus to go home and felt short of breath and presents to the emergency department with an oxygen saturation of 85%. Patient was diagnosed with viral upper respiratory infection and COPD exacerbation. - History of Current Complaint Time Seen by Provider: 09/20/19 09:46 Hx Obtained From: Patient Onset/Duration: Gradual Onset Current Severity: Moderate Dyspnea At: Exertion Aggravating Factors: Movement Alleviating Factors: Bronchodilators, EMS Tx, Oxygen Associated Signs & Symptoms: Cough (Productive), Wheezing - Allergy/Home Medications Allergies/Adverse Reactions: Allergies Allergy/AdvReac Type Severity Reaction Status Date / Time nicotine [From [email or web address] ] Allergy Rash Verified 09/20/19 06:17 PMH/Surg Hx/FS Hx/Imm Hx Endocrine/Hematology History: Denies: Hx Diabetes Cardiovascular History: Denies: Hx Angina, Hx Coronary Artery Disease, Hx Hypercholesterolemia, Hx Hypertension, Hx Myocardial Infarction, Hx Pacemaker/ICD, Hx Valvular Heart Disease Respiratory History: Reports: Other Respiratory Problems/Disorders - SMOKER FOR 52 YEARS Denies: Hx Asthma, Hx Chronic Obstructive Pulmonary Disease (COPD) GI History: Reports: Hx Gastroesophageal Reflux Disease - ON MEDICATION FOR, Other GI Disorders - reflux Denies: Hx Cirrhosis History: Denies: Hx Renal Disease Musculoskeletal History: Reports: Hx Arthritis - RHEUMATOID ARTHRITIS, Hx Rheumatoid Arthritis, Hx Osteoporosis, Other Musculoskeletal History - brace L leg do to freq knee dislocation Sensory History: Reports: Hx Contacts or Glasses - GLASSES Denies: Hx Hearing Aid Opthamlomology History: Reports: Hx Contacts or Glasses - GLASSES Psychiatric History: Denies: Hx Panic Disorder - Cancer History Cancer Type, Location and Year: PROSTATE - Surgical History Surgery Procedure, Year, and Place: 1994 LEFT HIP REPLACEMENT, [place] Hx Anesthesia Reactions: No - Immunization History Date of Influenza Vaccine: 06/2019 Infectious Disease History: No Infectious Disease History: Denies: Traveled Outside the [place] in Last 30 Days - Family History Known Family History: Positive: Non-Contributory - Social History Alcohol Use: None Substance Use Type: Reports: Marijuana Substance Use Comment - Amount & Last Used: MARIJUANA ONCE A WHILE Smoking Status (MU): Current Every Day Smoker Type: Cigarettes Amount Used/How Often: 1/2 PPD X 52 YEARS Have You Smoked in the Last Year: Yes Review of Systems Constitutional: Negative Eyes: Negative ENT: Negative Cardiovascular: Negative Positive: Shortness Of Breath, Cough Gastrointestinal: Negative Genitourinary: Negative Musculoskeletal: Negative Skin: Negative Neurological: Negative Psychological: Normal All Other Systems Reviewed And Are Negative: Yes Physical Exam Triage Information Reviewed: Yes Vital Signs On Initial Exam: Initial Vitals Temp Pulse Resp BP Pulse Ox 98.7 F 94 24 134/90 85 09/20/19 09:45 09/20/19 09:45 09/20/19 09:45 09/20/19 09:45 09/20/19 09:45 Vital Signs Reviewed: Yes Appearance: Positive: Well-Appearing, No Pain Distress, Well-Nourished Skin: Positive: Warm, Skin Color Reflects Adequate Perfusion Eyes: Positive: EOMI, CYRIL ENT: Positive: Hearing grossly normal Respiratory/Lung Sounds: Positive: Breath Sounds Present, Rhonchi, Wheezes Cardiovascular: Positive: RRR, S1, S2 Abdomen Description: Positive: Nontender, Soft Bowel Sounds: Positive: Present Musculoskeletal: Positive: Strength/ROM Intact Neurological: Positive: Sensory/Motor Intact, Alert, Oriented to Person Place, Time Psychiatric: Positive: Normal AVPU Assessment: Alert Procedures - Sedation Patient Received Moderate/Deep Sedation with Procedure: No Diagnostics - Vital Signs Vital Signs Temp Pulse Resp BP Pulse Ox 09/20/19 09:53 93 122/84 93 09/20/19 09:51 91 92 09/20/19 09:45 98.7 F 94 24 134/90 85 - Laboratory Result Diagrams: 09/21/19 09:01 09/21/19 09:01 Lab Statement: Any lab studies that have been ordered have been reviewed, and results considered in the medical decision making process. Course/Dx - Course Course Of Treatment: Patient was reevaluated in the emergency department for shortness of breath. Patient was given 1 more DuoNeb in the emergency department due to wheezing. Due to patient's desaturation upon leaving the emergency department hospitalist, Dr. Carrington, was consulted for admission of the patient at [facility]. Hospitalist agreed to admit patient. - Diagnoses Provider Diagnoses: COPD exacerbation - Physician Notifications Discussed Care of Patient With: Dora Carrington - agreed to admit for COPD exacerbation with desaturation with ambulation Time Discussed With Above Provider: 10:07 Instructed by Provider To: Admit As Inpatient Admit/Transition Orders Completed By ED Provider: No Discharge ED - Sign-Out/Discharge Documenting (check all that apply): Patient Departure - Discharge Plan Condition: Stable Disposition: ADMITTED TO [facility] - Billing Disposition and Condition Condition: STABLE Disposition: Admitted to [facility] - Attestation Statements Provider Attestation: I was available for consult. This patient was seen by the INA. The patient was not presented to, seen by, or examined by me. Edis Rodriguez MD
[2019-09-20] MEDS ORDERED: Albuterol/Ipratropium NEB.SOL* Albuterol 2.5 MG/Ipratropium 0.5 MG 3 ML INH PRN (10:54)
[2019-09-20] MEDS: HYDROcodone/ACET. 7.5/325 LIQ* 15 ML UDC PO PRN ×2 (13:18→20:21)
[2019-09-20] MEDS: DOXYcycline CAP(*) 100 MG PO SCH ×2 (13:20→20:22)
[2019-09-20] MEDS: Heparin VIAL(*) 5000 UNITS/ML VIAL (FIVE THOUSAND) SUBCUT SCH ×2 (13:20→21:22)
[2019-09-20] MEDS: Famotidine TAB* 20 MG PO SCH (13:20)
[2019-09-20] MEDS: methylPREDNISolone SOD 40 MG* 1 ML VIAL IV SCH ×2 (13:31→21:22)
[2019-09-20] MEDS: Albuterol/Ipratropium NEB.SOL* Albuterol 2.5 MG/Ipratropium 0.5 MG 3 ML INH SCH ×2 (13:44→19:05)
--- NOTE | 2019-09-20 13:56 | HP ---
CC: Dr. Soumya Good * HISTORY AND PHYSICAL: DATE OF ADMISSION: 09/20/19 PRIMARY CARE PROVIDER: Dr. Soumya Good. CHIEF COMPLAINT: Shortness of breath. HISTORY OF PRESENT ILLNESS: Mr. Anguiano is a 69-year-old male with history of COPD for which he normally does not take any medications on a daily basis, who presented to the hospital complaining of 3 days of shortness of breath, wheezing , and nonproductive cough. He in fact was in the emergency department earlier on today, discharged after a dose of Solu-Medrol was administered and nebulizer treatment. He went out in the cold air, started developing bronchospasm, and came right back into the hospital with oxygen saturations at 85% on room air. He does not usually use oxygen at home. He is going to be placed on overnight observation with a diagnosis of COPD exacerbation. PAST MEDICAL HISTORY: 1. History of COPD, not on medications and not on oxygen at home. 2. History of rheumatoid arthritis. 3. 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 The patient wears immobilizer for his bilateral lower extremities and has problems bending both of the knees due to that and that has been ongoing ever since childhood. 4. 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 5. History of bilateral cataract surgery. 6. History of right femoral hernia repair. MEDICATIONS: At home include: 1. Ranitidine 150 mg b.i.d. 2. Methotrexate 10 mg weekly. 3. [place] 7.5/325 one tablet up to 4 times a day p.r.n. 4. Folic acid 1 mg daily. 5. Fluticasone 0.05% topical b.i.d. 6. Vitamin B12 1000 mcg daily. 7. Lipitor 20 mg daily. 8. Aspirin 81 mg daily. ALLERGIES: The patient develops rash from NICODERM PATCH. FAMILY HISTORY: Father who in his 70s of [place]. Mother who in her 70s possibly due to [place]. SOCIAL HISTORY: The patient has history of 57-pack year smoking. Two years ago , he quit cigarette smoking, which he used to do 1 pack per day and switched to pipe. Currently, he smokes 2 to 3 pipes for a day. He denies any alcohol or drug use. He lives alone in an apartment building. As his surrogates, he names his niece, Macho Owens. He was unable to give me Macho's phone number at this point. He is a full code. REVIEW OF SYSTEMS: Please see history of present illness. In addition to the above mentioned, the patient had had no productive cough. He denies any problems with chest pain. He denies any fevers. He stated that he has been feeling like he has gotten a "cold." All the remaining 12 systems were reviewed with the patient and were otherwise negative. PHYSICAL EXAMINATION GENERAL: The patient is a very pleasant 69-year-old male of thin body habitus, who is in no acute distress. The patient is alert and oriented x3. VITAL SIGNS: Blood pressure of 134/97, heart rate of 94 and regular, respiratory rate 20, oxygen saturation 96% on 2 L of oxygen via nasal canula, temperature of 98.0. HEENT: Head: Atraumatic, normocephalic. Eyes: Pupils are equal and reactive to light and accommodation. Oropharynx clear. Mucosa moist. NECK: Supple. No JVD. No bruits bilaterally. RESPIRATORY: Scant wheezes in bilateral lower lungs, otherwise clear. CARDIOVASCULAR: Regular rate and rhythm. No murmur. ABDOMEN: Soft, nontender. Bowel sounds present in all 4 quadrants. EXTREMITIES: There is no edema. Pulses are +2 bilaterally. There is no clubbing or cyanosis. The patient is wearing an immobilizer in bilateral lower extremities from the level of the bilateral heels to the level of bilateral mid thighs. The right leg is significantly shortened than the left and that has been since childhood. NEURO EVALUATION: Speech is clear. Cranial nerve II through XII grossly intact. Motor strength is 5/5 bilaterally. DIAGNOSTIC STUDIES/LAB DATA: Laboratory data was obtained during the patient' s previous ER stay earlier on today and showed white blood cell count of 11.9, hemoglobin of 14.9, hematocrit of 43, and platelets of 270. VBG with pH of 7.32 , pCO2 of 44, PaO2 of 38, bicarb of 21. Sodium was 139, potassium 3.8, chloride 104, carbon dioxide 21, BUN 13, creatinine 0.79. Liver function tests unremarkable. C-reactive protein of 21.6. Troponin of 0.01. Brain natriuretic peptide was 63. The patient's portable chest x-ray, impression: "Hyperinflation. Consistent with COPD. No active cardiopulmonary disease." The patient's EKG showed normal sinus rhythm with a heart rate of 88 beats per minute with no ST changes. ASSESSMENT AND PLAN: 1. The patient developed acute hypoxemic respiratory failure due to chronic obstructive pulmonary disease exacerbation. He is going to be placed on overnight observation with treatment with Solu-Medrol intravenously. Nebulizers are going to be provided on a scheduled basis. I will also place him on doxycycline. I suspect the patient developed upper respiratory infection that may be bacterial. 2. For DVT prophylaxis, the patient is going to be placed on heparin subcutaneously. 3. For his rheumatoid arthritis, the patient had been taking methotrexate as outpatient. 4. The patient's code status is full. His surrogate is his niece as mentioned above. TIME SPENT: Approximately 62 minutes was spent on admission of this patient, more than half of that time was spent [id number] with the patient during the interview and physical exam. [id number]/CPS #: [id number] MTDD
[2019-09-20] MEDS: Atorvastatin* 20 MG TAB PO SCH (16:42)
[2019-09-20] MEDS: Acetaminophen TAB* 325 MG PO PRN (23:30)
[2019-09-21] MEDS: Albuterol/Ipratropium NEB.SOL* Albuterol 2.5 MG/Ipratropium 0.5 MG 3 ML INH SCH ×4 (01:18→19:15)
[2019-09-21] MEDS: methylPREDNISolone SOD 40 MG* 1 ML VIAL IV SCH ×2 (05:51→15:27)
[2019-09-21] MEDS: Heparin VIAL(*) 5000 UNITS/ML VIAL (FIVE THOUSAND) SUBCUT SCH ×3 (05:51→21:11)
[2019-09-21] MEDS: DOXYcycline CAP(*) 100 MG PO SCH ×2 (09:28→21:10)
[2019-09-21] MEDS: Folic Acid TAB* 1 MG PO SCH (09:29)
[2019-09-21] MEDS: Famotidine TAB* 20 MG PO SCH (09:29)
[2019-09-21] MEDS: Cyanocobalamin TAB* 500 MCG PO SCH (09:29)
[2019-09-21] MEDS: Aspirin 81 mg CHEW TAB* 81 MG TAB.CHEW PO SCH (09:30)
[2019-09-21] MEDS: Acetaminophen TAB* 325 MG PO PRN (09:30)
[2019-09-21 09:56] LABS: ABS Lymphocytes 0.8 10^3/ul (1.0-4.8); ABS Monocytes 0.7 10^3/ul (0-0.8); ABS Neutrophils 8.1 10^3/ul (1.5-7.7); Hematocrit 44 % (42-52); Lymphocyte % 8.2 %; Mean Corpuscular HGB Conc 34 g/dL (31-36); Mean Corpuscular Hemoglobin 33 pg (27-31); Mean Corpuscular Volume 96 fL (80-94); Mean Platelet Volume 8.5 fL (7.4-10.4); Nucleated Red Blood Cells % 0.2; Platelet Count 278 10^3/uL (150-450); Red Blood Count 4.56 10^6 /uL (4.18-5.48); Red Cell Distribution Width 15 % (10-15); White Blood Count 9.6 10^3/uL (3.5-10.8)
--- NOTE | 2019-09-21 10:06 | PN ---
Subjective Date of Service: 09/21/19 Interval History: Mr. Anguiano continues to complain that he feels very short of breath at rest. He denies other complaint including chest pain, nausea or abdominal pain. Objective Active Medications: Acetaminophen (Tylenol Tab*) 650 mg PO Q4H PRN Hydrocodone Bitart/Acetaminophen ([place] 7.5/325 Liq*) 15 ml PO QID PRN Albuterol/Ipratropium (Duoneb (Albuterol 2.5 Mg/Ipratropium 0.5 Mg)) 1 neb INH Q2H PRN Albuterol/Ipratropium (Duoneb (Albuterol 2.5 Mg/Ipratropium 0.5 Mg)) 1 neb INH [id number] Aspirin (Aspirin 81 Mg Chew Tab*) 81 mg PO DAILY [facility] Atorvastatin Calcium (Lipitor*) 20 mg PO QPM [facility] Cyanocobalamin (Vitamin B12 Tab*) 1,000 mcg PO DAILY [facility] Doxycycline Hyclate (Vibramycin Cap(*)) 100 mg PO BID [facility] Famotidine (Pepcid Tab*) 20 mg PO DAILY [facility] Folic Acid (Folvite Tab*) 1 mg PO DAILY [facility] Heparin Sodium (Porcine) (Heparin Vial(*)) 5,000 units SUBCUT Q8HR [facility] Methylprednisolone Sodium Succinate (Solu-Medrol 40 Mg) 40 mg IV Q8H [facility] Vital Signs: Temp Pulse Resp BP Pulse Ox 97.9 F 65 16 124/73 100 09/21/19 07:30 09/21/19 07:30 09/21/19 07:30 09/21/19 07:30 09/21/19 07:30 Oxygen Devices in Use Now: Nasal Cannula Appearance: Male lying in bed in NAD Eyes: No Scleral Icterus Ears/Nose/Mouth/Throat: Mucous Membranes Moist Neck: Trachea Midline Respiratory: Symmetrical Chest Expansion and Respiratory Effort, - - Minimal wheezing, diminished Cardiovascular: NL Sounds; No Murmurs; No JVD, No Edema Extremities: No Edema Skin: No Rash or Ulcers Neurological: Alert and Oriented x 3, NL Muscle Strength and Tone Nutrition: Taking PO's Result Diagrams: 09/21/19 09:01 09/21/19 09:01 Assess/Plan/Problems-Billing Assessment: Mr. Anguiano is a 69 yo M with a PMH of COPD, RA on immunosuppresion who was admitted on 09/20/19 with a COPD exacerbation. - Patient Problems (1) COPD exacerbation Comment: - SpO2 94% at rest on room air this afternoon, patient subjectively SOB, plan to mobilize to determine O2 need. Patient uses combination of wheelchair and leg braces at home for mobility. - Continue doxycycline, titrate from solumedrol to prednisone daily and then taper - Continue albuterol prn (2) Rheumatoid arthritis Comment: - Continue methotrexate (3) DVT prophylaxis Comment: - Heparin SQ (4) Full code status Comment: Status and Disposition: Transition to inpatient. Anticipate discharge to home when medically stable.
[2019-09-21 10:20] LABS: BUN/Creatinine Ratio 22.7 (8-20); Calcium 9.3 mg/dL (8.6-10.3); Potassium 4.2 mmol/L (3.5-5.0)
[2019-09-21] MEDS: Atorvastatin* 20 MG TAB PO SCH (18:09)
[2019-09-22] MEDS: Albuterol/Ipratropium NEB.SOL* Albuterol 2.5 MG/Ipratropium 0.5 MG 3 ML INH SCH ×2 (02:08→08:05)
[2019-09-22] MEDS: Acetaminophen TAB* 325 MG PO PRN (03:13)
[2019-09-22] MEDS: Heparin VIAL(*) 5000 UNITS/ML VIAL (FIVE THOUSAND) SUBCUT SCH ×2 (06:24→19:44)
[2019-09-22] MEDS: Aspirin 81 mg CHEW TAB* 81 MG TAB.CHEW PO SCH (10:05)
[2019-09-22] MEDS: Famotidine TAB* 20 MG PO SCH (10:05)
[2019-09-22] MEDS: DOXYcycline CAP(*) 100 MG PO SCH (10:06)
[2019-09-22] MEDS: Cyanocobalamin TAB* 500 MCG PO SCH (10:06)
[2019-09-22] MEDS: Folic Acid TAB* 1 MG PO SCH (10:06)
[2019-09-22 10:11] VITALS: BP 152/92
[2019-09-22] MEDS: HYDROcodone/ACET. 7.5/325 LIQ* 15 ML UDC PO PRN (11:49)
--- NOTE | 2019-09-22 12:09 | DS ---
CC: Dr. Soumya Good DISCHARGE SUMMARY: DATE OF ADMISSION: 09/20/19 DATE OF DISCHARGE: 09/22/19 ATTENDING PHYSICIAN WHILE IN THE HOSPITAL: Dr. Dora Carrington * (dictated by KAREL Brenner). PRIMARY CARE PROVIDER: Dr. Soumya Good. PRIMARY DIAGNOSIS: Acute respiratory failure related to chronic obstructive pulmonary disease exacerbation. SECONDARY DIAGNOSES: 1. Chronic obstructive pulmonary disease, no chronic use of oxygen. 2. Rheumatoid arthritis. 3. 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 4. 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 5. Tobacco use. HISTORY OF PRESENT ILLNESS/HOSPITAL COURSE: Walker Anguiano is a 69-year-old white male with past medical history significant for rheumatoid arthritis, COPD without chronic use of oxygen or previous home medications, tobacco use and history of CVA, who presented to the emergency department on 09/20/19 due to shortness of breath. The patient was found to have likely COPD exacerbation as his oxygen saturations were 85% on room air. For further details, please see the admitting history and physical written by Dr. Dora Carrington on 09/20/19. The patient was started on doxycycline and glucocorticoids for treatment and he is symptomatically feeling better today. The patient has been having good oxygen saturations on room air. The patient was able to walk 30 feet with good oxygen saturations; however, past 30 feet his oxygen saturations fell to 86%. It took for him over 50 feet to start feeling short of breath. The patient is anxious for discharge and denies chest pain, fever, chills. He does continue to have a productive cough. PHYSICAL EXAM ON DAY OF DISCHARGE: General: A thin, elderly white male, lying upright in hospital bed, appearing comfortable, in no acute distress. Lungs: Wheeze in the right lower lobe and some faint rhonchi anteriorly. Heart: Regular rate and rhythm without murmurs, rubs, or gallops. Abdomen: Soft, nontender, nondistended. Extremities: Braces bilaterally. Extremities are thin. No clubbing, cyanosis, or edema. Neuro: The patient is alert and oriented x3. No focal deficits. Able to move all extremities. DIET: Regular unrestricted diet. ACTIVITY: Advised the patient to avoid walking further than 30 feet for the next 2 to 3 days and to use wheelchair if necessary. DISCHARGE PLAN: The patient is advised to follow up with his primary care provider within a week to 10 day. At this time, an ambulatory oxygen saturation should be checked to determine if the patient needs to be using oxygen for further distances such as when he is out of the home. He is advised to return to the emergency department if he is experiencing sudden shortness of breath that is not improving with rescue inhaler, chest pain, hemoptysis, fever , chills, loss of consciousness, or other concerning symptoms. I advised the patient to discuss his new inhalers with the pharmacist to understand the use of each and we discussed the use of a rescue inhaler versus daily maintenance inhaler. He has been advised to quit smoking his pipe. At the time of his office followup, it would likely be of benefit if this patient receives a low dose CT chest considering his age and his long-term smoking history and his weight loss to rule out malignancy. I advised the patient to hold his methotrexate tomorrow and to restart it the following Monday on 09/30/19. DISCHARGE MEDICATIONS: New medications: 1. Albuterol inhaler 1 puff inhaled q.4 hours p.r.n. shortness of breath/ wheezing. 2. Spiriva 4 g inhaled daily. 3. Doxycycline 100 mg p.o. b.i.d. x9 doses. 4. Prednisone 40 mg p.o. daily x2 doses. Continued home medications: 1. Vitamin B12 1000 mcg p.o. daily. 2. Fluticasone 0.005% topically b.i.d. 3. Folic acid 1 mg p.o. daily. 4. Aspirin 81 mg p.o. daily. 5. Lipitor 20 mg p.o. daily. 6. Methotrexate 10 mg p.o. weekly every Monday. 7. Ranitidine 150 mg p.o. b.i.d. 8. [place] 7.5/325 one tab p.o. 4 times daily p.r.n. severe pain. CONDITION ON DISCHARGE: Stable. DISPOSITION: Home. TIME SPENT: Approximately 40 minutes was spent on this discharge, approximately half this time was spent at the bedside evaluating the patient and discussing the plan of care. KAREL BRENNER [id number]/[facility] #: [id number] [place]
== END 2019-09-22 14:35 | disposition home or self-care (01) | DRG 189 ==
LOC: ED 09:45 → OBSVTOIN 10:53 → INTOOBSV 10:53 → UNDOADMOB 10:53 → MED 10:53 → OBSVTOIN 09-21 15:39 → INTOOBSV 09-21 15:39 → UNDODISOB 09-22 14:35
PROVIDERS: ADMIT Internal Medicine; ATTEND Internal Medicine
DX: J96.01 Acute respiratory failure with hypoxia (principal); J44.1 Chronic obstructive pulmonary disease with (acute) exacerbation; M06.9 Rheumatoid arthritis, unspecified; F17.290 Nicotine dependence, other tobacco product, uncomplicated; Q66.89 Other specified congenital deformities of feet; Z86.73 Personal history of transient ischemic attack (TIA), and cerebral infarction without residual deficits; Z79.82 Long term (current) use of aspirin; Z79.899 Other long term (current) drug therapy; Z88.8 Allergy status to other drugs, medicaments and biological substances; Z82.49 Family history of ischemic heart disease and other diseases of the circulatory system
CPT/HCPCS: 36415; 80048; 85025; 94640; 96365; 96366; 96372; 99284; A9270-GY; G0378; J1644; J2920; J7512

== ENCOUNTER 2021-08-22 00:59 | Inpatient (IN) ==
[2021-08-22 01:33] LABS: ABS Basophils 0.1 10^3/ul (0-0.2); ABS Lymphocytes 2.4 10^3/ul (1.0-4.8); Eosinophil % 0.4 %; Hematocrit 38 % (42-52); Lymphocyte % 22.7 %; Mean Corpuscular HGB Conc 34 g/dL (31-36); Mean Corpuscular Hemoglobin 35 pg (27-31); Mean Corpuscular Volume 103 fL (80-94); Mean Platelet Volume 7.7 fL (7.4-10.4); Platelet Count 317 10^3/uL (150-450); Red Blood Count 3.74 10^6 /uL (4.18-5.48); Red Cell Distribution Width 17 % (10-15); White Blood Count 10.5 10^3/uL (3.5-10.8)
[2021-08-22 01:51] LABS: ALT 8 U/L (7-52); AST 16 U/L (13-39); Albumin/Globulin Ratio 1.6 (1-3); Alkaline Phosphatase 185 U/L (35-149); Anion Gap 8 mmol/L (2-11); Blood Urea Nitrogen 16 mg/dL (6-24); CO2 Carbon Dioxide 28 mmol/L (22-32); Calcium 8.9 mg/dL (8.6-10.3); Chloride 106 mmol/L (101-111); Globulin 2.5 g/dL (2-4); Glucose 116 mg/dL (70-100); Magnesium 2.2 mg/dL (1.9-2.7); Potassium 3.3 mmol/L (3.5-5.0); Sodium 142 mmol/L (135-145); Total Protein 6.5 g/dL (6.4-8.9); eGFR CKD-EPI 105.9 (>60)
[2021-08-22 01:52] LABS: Troponin I 0.01 ng/mL (<0.03)
[2021-08-22 02:38] LABS: Alcohol, S < 13 mg/dL (<13)
[2021-08-22] MEDS ORDERED: HYDROcodone/ACETAMIN 5/325 mg TAB PO ONE (03:34)
[2021-08-22 04:07] LABS: TSH Ultra Thyroid Stim Horm 3.11 mcIU/mL (0.34-5.60)
[2021-08-22] MEDS ORDERED: Iohexol 300 (CONTRAST) 10 ML SDV IV ONE (05:00)
[2021-08-22 05:27] LABS: Urine Appearance Cloudy; Urine Bilirubin Negative (Negative); Urine Blood 2+ (Negative); Urine Color Yellow; Urine Glucose Negative (Negative); Urine Ketones Negative (Negative); Urine Nitrite Negative (Negative); Urine Protein 1+(30 mg/dL) (Negative); Urine Specific Gravity 1.039 (1.002-1.030); Urine Urobilinogen Negative (Negative)
[2021-08-22 05:34] LABS: Urine Bacteria Absent (Absent); Urine Red Blood Cell 3+(>10/hpf) (Absent); Urine White Blood Cell 2+(11-20/hpf) (Absent)
[2021-08-22 05:47] LABS: Urine Benzodiazepine Screen None Detected (None Detect); Urine Cannabinoids Screen None Detected (None Detect); Urine Opiates Screen Presumptive Positive (None Detect)
[2021-08-22 09:48] LABS: Rapid COVID-19 Molecular Undetected (Undetected)
[2021-08-22] MEDS ORDERED: Potassium Chlor 20 meq TAB.ER PO ONE (11:04)
[2021-08-22] MEDS ORDERED: Gadoteridol (CONTRAST) 279.3 MG/ML 10 ML IV ONE (12:02)
[2021-08-22 12:32] LABS: Vitamin B12 329 pg/mL (180-914)
[2021-08-22] MEDS: HYDROcodone/ACET. 7.5/325 LIQ 15 ML UDC PO PRN ×2 (13:35→18:27)
[2021-08-22] MEDS ORDERED: Dexamethasone IV 10 MG in NS 0.9% 50 ML 50 ML IVPB ONE (16:51)
[2021-08-22] MEDS: Heparin 5000 UNITS/ML 1 mL VIAL SUBCUT SCH ×2 (18:12→21:25)
[2021-08-22] MEDS ORDERED: Dexamethasone IV 4 MG/ML 5 ML VIAL (20 MG) ONE (18:22)
[2021-08-22] MEDS: Pantoprazole VIAL 40 MG VIAL IV SCH (18:27)
[2021-08-22] MEDS ORDERED: Calcium/Vitamin D TAB 250/125 TAB PO SCH (21:00)
[2021-08-22] MEDS: Calcium/Vitamin D TAB 250/125 TAB PO SCH (21:23)
[2021-08-22] MEDS: Dexamethasone IV 4 MG/ML VIAL 1 ml VIAL IV SLOW PU SCH (23:56)
[2021-08-23] MEDS: Heparin 5000 UNITS/ML 1 mL VIAL SUBCUT SCH ×3 (05:18→21:43)
[2021-08-23] MEDS: Dexamethasone IV 4 MG/ML VIAL 1 ml VIAL IV SLOW PU SCH ×3 (05:19→18:23)
[2021-08-23] MEDS: Pantoprazole VIAL 40 MG VIAL IV SCH (09:39)
[2021-08-23] MEDS: Calcium/Vitamin D TAB 250/125 TAB PO SCH ×2 (09:39→21:43)
[2021-08-23] MEDS: CMC:Bicalutamide 50 mg TAB (NF) PO SCH (12:10)
[2021-08-23] MEDS: HYDROcodone/ACET. 7.5/325 LIQ 15 ML UDC PO PRN ×2 (13:54)
[2021-08-23] MEDS ORDERED: Gadoteridol (CONTRAST) 279.3 MG/ML 10 ML IV ONE (17:08)
[2021-08-24] MEDS: Dexamethasone IV 4 MG/ML VIAL 1 ml VIAL IV SLOW PU SCH ×5 (00:35→23:52)
[2021-08-24 05:20] LABS: ABS Lymphocytes 0.8 10^3/ul (1.0-4.8); ABS Monocytes 0.2 10^3/ul (0-0.8); ABS Neutrophils 8.1 10^3/ul (1.5-7.7); Hematocrit 36 % (42-52); Hemoglobin 12.5 g/dL (14.0-18.0); Lymphocyte % 8.8 %; Mean Corpuscular HGB Conc 35 g/dL (31-36); Mean Corpuscular Hemoglobin 35 pg (27-31); Mean Corpuscular Volume 101 fL (80-94); Mean Platelet Volume 8.2 fL (7.4-10.4); Platelet Count 326 10^3/uL (150-450); Red Blood Count 3.59 10^6 /uL (4.18-5.48); Red Cell Distribution Width 16 % (10-15); White Blood Count 9.1 10^3/uL (3.5-10.8)
[2021-08-24 05:38] LABS: Calcium 9.5 mg/dL (8.6-10.3); Magnesium 2.2 mg/dL (1.9-2.7); eGFR CKD-EPI 104.6 (>60)
[2021-08-24] MEDS: Heparin 5000 UNITS/ML 1 mL VIAL SUBCUT SCH ×3 (06:03→20:35)
[2021-08-24] MEDS: Pantoprazole VIAL 40 MG VIAL IV SCH (09:46)
[2021-08-24] MEDS: Calcium/Vitamin D TAB 250/125 TAB PO SCH ×2 (09:49→20:36)
[2021-08-24] MEDS: CMC:Bicalutamide 50 mg TAB (NF) PO SCH (09:50)
[2021-08-24] MEDS: HYDROcodone/ACET. 7.5/325 LIQ 15 ML UDC PO PRN ×2 (12:57→20:33)
[2021-08-25] MEDS: Dexamethasone IV 4 MG/ML VIAL 1 ml VIAL IV SLOW PU SCH ×4 (05:49→23:49)
[2021-08-25] MEDS: Heparin 5000 UNITS/ML 1 mL VIAL SUBCUT SCH ×3 (05:49→21:30)
[2021-08-25] MEDS: Calcium/Vitamin D TAB 250/125 TAB PO SCH ×2 (12:28→21:29)
[2021-08-25] MEDS: CMC:Bicalutamide 50 mg TAB (NF) PO SCH (12:28)
[2021-08-25] MEDS: Pantoprazole VIAL 40 MG VIAL IV SCH (12:29)
[2021-08-25] MEDS: HYDROcodone/ACET. 7.5/325 LIQ 15 ML UDC PO PRN ×2 (14:04→22:36)
[2021-08-26] MEDS: Heparin 5000 UNITS/ML 1 mL VIAL SUBCUT SCH ×3 (05:58→20:46)
[2021-08-26] MEDS: Dexamethasone IV 4 MG/ML VIAL 1 ml VIAL IV SLOW PU SCH ×3 (05:58→17:38)
[2021-08-26] MEDS: Pantoprazole VIAL 40 MG VIAL IV SCH (08:55)
[2021-08-26] MEDS: HYDROcodone/ACET. 7.5/325 LIQ 15 ML UDC PO PRN ×2 (08:59→19:57)
[2021-08-26] MEDS: Calcium/Vitamin D TAB 250/125 TAB PO SCH ×2 (09:01→20:45)
[2021-08-26] MEDS: CMC:Bicalutamide 50 mg TAB (NF) PO SCH (09:02)
[2021-08-26] MEDS ORDERED: Iohexol 300 (CONTRAST) 10 ML SDV IV ONE (14:32)
[2021-08-27] MEDS: Dexamethasone IV 4 MG/ML VIAL 1 ml VIAL IV SLOW PU SCH ×4 (00:31→17:00)
[2021-08-27] MEDS: Heparin 5000 UNITS/ML 1 mL VIAL SUBCUT SCH ×3 (05:55→21:43)
[2021-08-27] MEDS: HYDROcodone/ACET. 7.5/325 LIQ 15 ML UDC PO PRN (08:41)
[2021-08-27] MEDS: Pantoprazole VIAL 40 MG VIAL IV SCH (08:41)
[2021-08-27] MEDS: Calcium/Vitamin D TAB 250/125 TAB PO SCH ×2 (08:43→21:42)
[2021-08-27] MEDS: CMC:Bicalutamide 50 mg TAB (NF) PO SCH (08:44)
[2021-08-28] MEDS: HYDROcodone/ACET. 7.5/325 LIQ 15 ML UDC PO PRN ×3 (00:28→21:26)
[2021-08-28] MEDS: Dexamethasone IV 4 MG/ML VIAL 1 ml VIAL IV SLOW PU SCH ×5 (00:29→23:32)
[2021-08-28] MEDS: Heparin 5000 UNITS/ML 1 mL VIAL SUBCUT SCH ×3 (05:29→21:27)
[2021-08-28 06:07] LABS: Hematocrit 36 % (42-52); Hemoglobin 12.1 g/dL (14.0-18.0); Mean Corpuscular HGB Conc 34 g/dL (31-36); Mean Corpuscular Hemoglobin 34 pg (27-31); Mean Corpuscular Volume 101 fL (80-94); Mean Platelet Volume 7.8 fL (7.4-10.4); Platelet Count 372 10^3/uL (150-450); Red Blood Count 3.57 10^6 /uL (4.18-5.48); Red Cell Distribution Width 16 % (10-15)
[2021-08-28 06:09] LABS: ABS Lymphocytes 0.6 10^3/ul (1.0-4.8); ABS Monocytes 0.3 10^3/ul (0-0.8); ABS Neutrophils 6.1 10^3/ul (1.5-7.7); Lymphocyte % 9.1 %; Nucleated Red Blood Cells % 0.2
[2021-08-28 06:27] LABS: Albumin 3.2 g/dL (3.2-5.2); Albumin/Globulin Ratio 1.5 (1-3); Calcium 8.6 mg/dL (8.6-10.3); Globulin 2.1 g/dL (2-4); Potassium 4.6 mmol/L (3.5-5.0); Total Bilirubin 0.6 mg/dL (0.2-1.0); Total Protein 5.3 g/dL (6.4-8.9); eGFR CKD-EPI 106.4 (>60)
[2021-08-28] MEDS: Calcium/Vitamin D TAB 250/125 TAB PO SCH ×2 (08:44→21:26)
[2021-08-28] MEDS: CMC:Bicalutamide 50 mg TAB (NF) PO SCH (08:44)
[2021-08-28] MEDS: Pantoprazole VIAL 40 MG VIAL IV SCH (08:44)
[2021-08-29] MEDS: Dexamethasone IV 4 MG/ML VIAL 1 ml VIAL IV SLOW PU SCH ×3 (05:04→17:54)
[2021-08-29] MEDS: Heparin 5000 UNITS/ML 1 mL VIAL SUBCUT SCH ×3 (05:04→20:46)
[2021-08-29] MEDS: Calcium/Vitamin D TAB 250/125 TAB PO SCH ×2 (08:39→20:46)
[2021-08-29] MEDS: CMC:Bicalutamide 50 mg TAB (NF) PO SCH (08:40)
[2021-08-29] MEDS: Pantoprazole VIAL 40 MG VIAL IV SCH (08:40)
[2021-08-29 08:45] LABS: Calcium 8.8 mg/dL (8.6-10.3); Potassium 4.8 mmol/L (3.5-5.0); eGFR CKD-EPI 102.4 (>60)
[2021-08-29] MEDS: HYDROcodone/ACET. 7.5/325 LIQ 15 ML UDC PO PRN ×2 (10:45→20:46)
[2021-08-30] MEDS: Dexamethasone IV 4 MG/ML VIAL 1 ml VIAL IV SLOW PU SCH ×4 (01:11→21:36)
[2021-08-30] MEDS: HYDROcodone/ACET. 7.5/325 LIQ 15 ML UDC PO PRN ×3 (03:20→19:45)
[2021-08-30] MEDS: Heparin 5000 UNITS/ML 1 mL VIAL SUBCUT SCH ×3 (05:57→21:36)
[2021-08-30 07:36] LABS: Hematocrit 37 % (42-52); Hemoglobin 12.3 g/dL (14.0-18.0); Mean Corpuscular HGB Conc 34 g/dL (31-36); Mean Corpuscular Hemoglobin 34 pg (27-31); Mean Corpuscular Volume 101 fL (80-94); Mean Platelet Volume 7.8 fL (7.4-10.4); Platelet Count 388 10^3/uL (150-450); Red Cell Distribution Width 16 % (10-15); White Blood Count 11.2 10^3/uL (3.5-10.8)
[2021-08-30 07:53] LABS: Calcium 8.4 mg/dL (8.6-10.3); Potassium 4.8 mmol/L (3.5-5.0)
[2021-08-30 08:15] LABS: INR 0.95 (0.86-1.15)
[2021-08-30] MEDS: Calcium/Vitamin D TAB 250/125 TAB PO SCH ×2 (09:20→21:36)
[2021-08-30] MEDS: CMC:Bicalutamide 50 mg TAB (NF) PO SCH (09:21)
[2021-08-30] MEDS: Pantoprazole VIAL 40 MG VIAL IV SCH (09:22)
[2021-08-30] MEDS ORDERED: fentaNYL 100 mcg/2 ml 50 MCG/ML VIAL ONE ×2 (11:48→13:38)
[2021-08-31] MEDS: HYDROcodone/ACET. 7.5/325 LIQ 15 ML UDC PO PRN ×3 (04:05→18:09)
[2021-08-31] MEDS: Dexamethasone IV 4 MG/ML VIAL 1 ml VIAL IV SLOW PU SCH ×4 (04:07→18:12)
[2021-08-31] MEDS: Morphine ER 15 mg TAB ** extended release PO SCH ×2 (09:40→20:04)
[2021-08-31] MEDS: Heparin 5000 UNITS/ML 1 mL VIAL SUBCUT SCH ×3 (09:42→20:05)
[2021-08-31] MEDS: Pantoprazole VIAL 40 MG VIAL IV SCH (09:42)
[2021-08-31] MEDS: CMC:Bicalutamide 50 mg TAB (NF) PO SCH (09:44)
[2021-08-31] MEDS: Calcium/Vitamin D TAB 250/125 TAB PO SCH ×2 (09:44→20:04)
[2021-08-31] MEDS ORDERED: LEUPROLIDE 7.5 MG SUBCUT ONE (10:30)
[2021-09-01] MEDS: Dexamethasone IV 4 MG/ML VIAL 1 ml VIAL IV SLOW PU SCH ×4 (01:40→17:26)
[2021-09-01] MEDS: Heparin 5000 UNITS/ML 1 mL VIAL SUBCUT SCH ×3 (06:16→21:33)
[2021-09-01] MEDS: HYDROcodone/ACET. 7.5/325 LIQ 15 ML UDC PO PRN ×2 (06:16→13:02)
[2021-09-01] MEDS: Calcium/Vitamin D TAB 250/125 TAB PO SCH ×2 (08:50→21:32)
[2021-09-01] MEDS: Morphine ER 15 mg TAB ** extended release PO SCH ×2 (08:51→21:32)
[2021-09-01] MEDS: CMC:Bicalutamide 50 mg TAB (NF) PO SCH (08:51)
[2021-09-01] MEDS: Pantoprazole VIAL 40 MG VIAL IV SCH (08:52)
[2021-09-01] MEDS ORDERED: LEUPROLIDE 7.5 MG SUBCUT ONE (11:00)
[2021-09-02] MEDS: Dexamethasone IV 4 MG/ML VIAL 1 ml VIAL IV SLOW PU SCH ×4 (01:09→18:07)
[2021-09-02] MEDS: Heparin 5000 UNITS/ML 1 mL VIAL SUBCUT SCH ×3 (06:35→20:16)
[2021-09-02] MEDS: Morphine ER 15 mg TAB ** extended release PO SCH ×2 (09:25→20:15)
[2021-09-02] MEDS: Calcium/Vitamin D TAB 250/125 TAB PO SCH ×2 (09:26→20:15)
[2021-09-02] MEDS: CMC:Bicalutamide 50 mg TAB (NF) PO SCH (09:27)
[2021-09-02] MEDS: Pantoprazole VIAL 40 MG VIAL IV SCH (09:28)
[2021-09-02] MEDS: HYDROcodone/ACET. 7.5/325 LIQ 15 ML UDC PO PRN ×2 (13:10→18:07)
[2021-09-03] MEDS: Dexamethasone IV 4 MG/ML VIAL 1 ml VIAL IV SLOW PU SCH ×2 (01:29→05:13)
[2021-09-03] MEDS: HYDROcodone/ACET. 7.5/325 LIQ 15 ML UDC PO PRN (01:29)
[2021-09-03] MEDS ORDERED: Dexamethasone IV 4 MG/ML VIAL 1 ml VIAL ONE (05:10)
[2021-09-03] MEDS: Heparin 5000 UNITS/ML 1 mL VIAL SUBCUT SCH ×2 (05:13→14:02)
[2021-09-03 06:40] LABS: Hematocrit 35 % (42-52); Hemoglobin 11.9 g/dL (14.0-18.0); Mean Corpuscular HGB Conc 34 g/dL (31-36); Mean Corpuscular Hemoglobin 34 pg (27-31); Mean Corpuscular Volume 100 fL (80-94); Mean Platelet Volume 8.1 fL (7.4-10.4); Platelet Count 338 10^3/uL (150-450); Red Blood Count 3.49 10^6 /uL (4.18-5.48); Red Cell Distribution Width 16 % (10-15); White Blood Count 9.8 10^3/uL (3.5-10.8)
[2021-09-03 07:09] LABS: ABS Lymphocytes 0.5 10^3/ul (1.0-4.8); ABS Monocytes 0.3 10^3/ul (0-0.8); Eosinophil % 0.1 %; Lymphocyte % 5.5 %; Nucleated Red Blood Cells % 0.1
[2021-09-03 07:13] LABS: Calcium 8.2 mg/dL (8.6-10.3); Potassium 4.7 mmol/L (3.5-5.0); eGFR CKD-EPI 108.4 (>60)
[2021-09-03] MEDS: Pantoprazole VIAL 40 MG VIAL IV SCH (08:15)
[2021-09-03] MEDS: CMC:Bicalutamide 50 mg TAB (NF) PO SCH (08:15)
[2021-09-03] MEDS: Morphine ER 15 mg TAB ** extended release PO SCH (08:15)
[2021-09-03] MEDS: Calcium/Vitamin D TAB 250/125 TAB PO SCH (08:15)
[2021-09-03 08:25] LABS: RBC Morphology Normal (Normal)
[2021-09-03 11:52] VITALS: BP 128/76
[2021-09-03 13:56] LABS: Rapid COVID-19 Molecular Undetected (Undetected)
== END 2021-09-03 14:00 | DRG 478 ==
LOC: ED 00:59 → EDHOLD 00:59 → SUATTDRO 10:28 → MEDTELE 15:23 → SUATTDRO 08-25 14:24
PROVIDERS: ADMIT Internal Medicine; ATTEND Hospitalist